=== PATIENT | female | born 2000 ===

== ENCOUNTER 2019-01-23 19:49 | Outpatient (CLI) | payer SELFPAY ==
[2019-01-23 20:18] LABS: APPEARANCE SL CLDY (CLEAR); COLOR DK YELLOW (YELLOW)
[2019-01-23 20:19] LABS: BILIRUBIN NEGATIVE (NEGATIVE); GLUCOSE NEGATIVE (NEGATIVE); KETONE NEGATIVE (NEGATIVE); NITRITE NEGATIVE (NEGATIVE); PROTEIN TRACE mg/dL (NEGATIVE); SPECIFIC GRAVITY 1.025 (1.005-1.020); UROBILINOGEN NORMAL (NORMAL)
[2019-01-23 20:22] LABS: BACTERIA MODERATE /hpf (NONE SEEN); RED CELLS - URINE 0-5 /hpf (0-5); SPERMATOZOA 0-5 /hpf (NONE SEEN)
== END 2019-01-23 20:55 | disposition home or self-care (01) ==
LOC: D.LDO 19:49
PROVIDERS: ATTEND Obstetrics & Gynecology
DX: O26.899 Other specified pregnancy related conditions, unspecified trimester (principal); Z3A.00 Weeks of gestation of pregnancy not specified

== ENCOUNTER → 2019-02-21 18:38 | Outpatient (CLI) | payer OTHER, MEDICAID ==
[2019-02-21 19:41] LABS: APPEARANCE CLEAR (CLEAR); BILIRUBIN NEGATIVE (NEGATIVE); COLOR YELLOW (YELLOW); GLUCOSE NEGATIVE (NEGATIVE); KETONE NEGATIVE (NEGATIVE); NITRITE NEGATIVE (NEGATIVE); PROTEIN NEGATIVE (NEGATIVE); UROBILINOGEN NORMAL (NORMAL)
[2019-02-21 19:43] LABS: EPITHELIAL CELLS 0-5 /hpf (0-5); RED CELLS - URINE 0-5 /hpf (0-5)
[2019-02-21 19:44] LABS: BACTERIA MODERATE /hpf (NONE SEEN)
== END | disposition home or self-care (01) ==
LOC: D.LDO 18:38
PROVIDERS: ATTEND Obstetrics & Gynecology
DX: O46.90 Antepartum hemorrhage, unspecified, unspecified trimester (principal)

== ENCOUNTER → 2019-03-07 11:57 | Outpatient (CLI) | payer OTHER, MEDICAID ==
[~2019-03-07 11:57] MED LIST: CYCLOBENZAPRINE10 MG PO; FERROUS SULFAT325 MG PO; HYDROCODON-ACE1 EA10 PO; IBUPROFEN600 MG PO; PRENAVITE1 TAB PO
[2019-03-11 05:46] VITALS: BMI 33.7
== END | disposition home or self-care (01) ==
LOC: D.LDO 11:57
PROVIDERS: ATTEND Obstetrics & Gynecology
DX: O48.0 Post-term pregnancy (principal); Z3A.40 40 weeks gestation of pregnancy

== ENCOUNTER 2019-03-10 20:06 | Inpatient (IN) | payer OTHER, MEDICAID ==
[~2019-03-10] VITALS: Ht 170.2 cm; Wt 97.5 kg
[2019-03-11] MEDS ORDERED: CYCLOBENZAPRINE10 MG PO (05:44)
[2019-03-11] MEDS ORDERED: FERROUS SULFAT325 MG PO (05:44)
[2019-03-11] MEDS ORDERED: PRENAVITE1 TAB PO (05:45)
[2019-03-11 05:46] VITALS: BP 120/73; Ht 170.2 cm; Wt 97.5 kg
[2019-03-11 06:38] LABS: HEMATOCRIT 28.5 % (36.0-48.0); HEMOGLOBIN 8.8 g/dL (12-16); MCHC 30.9 g/dL (31.0-37.0); MCV 77.7 fL (80.0-100.0); MEAN PLATELET VOLUME 9.9 fL (7.4-10.4); RBC 3.67 10x6/uL (4.00-5.40); RDW 15.5 % (11.5-14.5); WBC 10.1 10x3/uL (4.8-10.8)
[2019-03-12] VITALS (10 sets, daily range): BP systolic 90–139; BP diastolic 53–72
[2019-03-12 06:42] LABS: BASOPHILS 0.2 % (0-2); HEMATOCRIT 34.1 % (36.0-48.0); IMMATURE GRANULOCYTES 0.5 % (0-5); LYMPHOCYTES 17.9 % (15-50); MCH 24.7 pg (26.0-34.0); MCHC 31.7 g/dL (31.0-37.0); MEAN PLATELET VOLUME 9.7 fL (7.4-10.4); MONOCYTES 10.1 % (2-11); NEUTROPHILS 70.3 % (40-80); PLATELET COUNT 347 10x3/uL (130-400); RBC 4.37 10x6/uL (4.00-5.40); RDW 15.3 % (11.5-14.5)
[2019-03-12 06:44] LABS: HEMOGLOBIN 10.8 g/dL (12-16)
[2019-03-12 08:10] LABS: RAPID PLASMA REAGIN Non Reactive (Non Reactive)
--- NOTE | 2019-03-12 08:40 | NUR ---
BABY BOY BORN AT 0828
--- NOTE | 2019-03-12 09:29 | NUR ---
PT RECEIVED FROM RR, ALERT AND ORIENTED, CONVERSANT, VITAL SIGNS STABLE, RESP EVEN AND UNLABORED, HEART RRR, LUNGS CTAB, ABD SOFT MILDLY TENDER, DENIES C/O PAIN ON INQUIRY, FUNDUS FIRM AT U/2 AND MIDLINE, LOCHIA RUBRA LIGHT AMOUNT NO CLOTS, SCDS APPLIED TO B LE AND TO APPROPRIATELY FUNCTIONING PUMP. PULSE OX 100% ON RA. HOB ELEVATED 30 DEGREES, ICE PACK OVERLAY APPLIED OVER CDI ABD DRESSING, VEGA FREELY, NEGATIVE GAURAV'S SIGN B LE, PEDAL PULSES STRONG AND = B. CALL LIGHT PLACED WITHIN EASY REACH, PIV INFUSING PER IVAC PUMP OF NS WITH 20 UNITS PITOCIN ADDED AT 125ML/HR. ICE CHIPS PROVIDED UPON REQUEST OF PT, BED IN LOW POSITION, BED BRAKES LOCKED, SIDE RAILS UP X2, SIGNIFICANT OTHER TO ROOM. CONTINUE TO MONITOR PER POST-OP PROTOCOL.
--- NOTE | 2019-03-12 09:45 | NUR ---
VSS, RESP EVEN AND UNLABORED, CONVERSANT, DENIES NEEDS OR CONCERNS. WILL MONITOR.
--- NOTE | 2019-03-12 10:15 | NUR ---
FUNDUS FIRM AT U/2 AND MIDLINE, LOCHIA RUBRA SCANT TO LIGHT AMOUNT NO CLOTS, MILDLY AND APPROPRIATELY TENDER TO ABD. ASSISTED TO COMFORT, FAMILY AT BS, NO OTHER NEEDS VOICED, TOLERATING ICE CHIPS WITHOUT N/V. MOY TO GRAVITY DRAINAGE WITH 50 ML URINE NOTED IN TUBING AT THIS TIME. CONTINUE TO MONITOR.
--- NOTE | 2019-03-12 10:29 | NUR ---
PT C/O INCISIONAL PAIN THAT IS SHARP RATED 3/10 ON NUMERIC PAIN SCALE. SOA ENGINEER DILAUDID AND TORADOL SIVP GIVEN PER MD ORDERS AND VERIFIED PER Shiraz LIVINGSTON, RN WITH THIS RN. TO PT Shiraz MORENO, RN ASSISTING WITH TEACHING AT THIS TIME, FAMILY REMAINS TO ROOM, DISCUSSED USE OF SOA ENGINEER AND SOA ENGINEER BUTTON AND CALL LIGHT WITHIN EASY REACH OF PT. PT STATES UNDERSTANDING OF ALL INSTRUCTIONS GIVEN.
--- NOTE | 2019-03-12 11:30 | NUR ---
PT RESTING WITH EYES CLOSED ON ROUNDS, RESP EVEN AND UNLABORED, PERICARE PROVIDED WITH SMALL AMOUNT LOCHIA RUBRA NOTED, PERIPADS CHANGED, FUNDUS FIRM AT U/2 AND MIDLINE, USING FIXED INCOME PORTFOLIO MANAGER WITHOUT DIFFICULTY, DENIES C/O PAIN AT PRESENT. TOLERATING PO FLUIDS WITHOUT N/V. MOY TO GRAVITY DRAINAGE WITH CLEAR YELLOW URINE IN CHAMBER. CALL LIGHT IN EASY REACH, CONTINUE TO MONITOR.
--- NOTE | 2019-03-12 12:35 | NUR ---
ROUNDS COMPLETED, RESP EVEN AND UNLABORED, SITTING UPRIGHT IN BED WITH CLEAR LIQUID LUNCH TRAY ON BST. DENIES NEEDS OR CONCERNS, PULSE OX 100%, RESP EVEN AND UNLABORED, DENIES C/O PAIN AT PRESENT. CALL LIGHT AND CASH ACCOUNTANT BUTTON WITHIN EASY REACH OF PT, ENCOURAGED TO CALL THIS RN WITH ANY NEEDS, DESIRES, OR CONCERNS. STATES UNDERSTANDING. WILL MONITOR.
[2019-03-12 13:31] LABS: BASOPHILS 0.2 % (0-2); EOSINOPHILS 0.3 % (0-7); HEMATOCRIT 30.7 % (36.0-48.0); IMMATURE GRANULOCYTES 0.4 % (0-5); LYMPHOCYTES 9.3 % (15-50); MCH 25.3 pg (26.0-34.0); MCHC 32.6 g/dL (31.0-37.0); MCV 77.7 fL (80.0-100.0); MEAN PLATELET VOLUME 9.3 fL (7.4-10.4); MONOCYTES 7.3 % (2-11); NEUTROPHILS 82.5 % (40-80); PLATELET COUNT 291 10x3/uL (130-400); RBC 3.95 10x6/uL (4.00-5.40); RDW 15.1 % (11.5-14.5)
--- NOTE | 2019-03-12 13:35 | NUR ---
ROUNDS COMPLETED, INFANT IN ARMS, DENIES NEEDS OR CONCERNS, WILL MONITOR. NAD NOTED.
--- NOTE | 2019-03-12 14:25 | NUR ---
NURSERY STAFF TO ROOM TO ASSIST PT WITH , PT REMAINS CALM, RESP EVEN AND UNLABORED, NO C/O PAIN AT PRESENT, ENCOURAGED PT TO NOTIFY THIS RN WHEN COMPLETED FOR PERICARE AND POSITIONING CHANGE. STATES UNDERSTANDING, ENCOURAGED TCDB. WILL MONITOR. C/L AND PELT DROPPER BUTTON WITHIN EASY REACH OF PT.
--- NOTE | 2019-03-12 15:21 | NUR ---
ROUNDS COMPLETED, PT RESTING WITH NAD, EYES CLOSED, PERICARE PROVIDED, INFANT IN ARMS. WILL MONITOR.
--- NOTE | 2019-03-12 16:03 | NUR ---
REQUESTED ICE WATER. FRESH WATER GIVEN. INSTRUCTED ON USE OF INCENTIVE SPIROMETER. USED X 3 WITH WEAK COUGH. ENCOURAGED TO USE IP 10 X/HR AND INSTRUCTED ON SPLINTING ABDOMEN. TOLERATED WELL. SITTING UP IN BED, TV ON FOB IN ROOM, IN CRIB. GOLD LEAF LABORER CONTROLLER AND CALL LIGHT IN REACH. AT APPROX 30% CLEAR LIQUID DIET FOR LUNCH. SIDERAILS UP X 2. TO CALL IF ANYTHING IS NEEDED.
--- NOTE | 2019-03-12 17:30 | NUR ---
ROUNDS COMPLETED, PT SITTING UPRIGHT IN BED, TOLERATING PO FLUIDS/DINNER TRAY. NAD NOTED. CONTINUE TO MONITOR.
--- NOTE | 2019-03-12 18:05 | NUR ---
ROUNDS COMPLETED FOLLOWING ADMINISTRATION OF NS WITH 20 UNITS PITOCIN ADDED HUNG AND INFUSING AT 125ML/HR TO PIV SITE, L WRIST SITE BENIGN TO INSPECTION. RESP EVEN UNLABORED, MOY CATHETER DRAINAGE BAG EMPTIED, INTAKE AND OUTPUT ENTERED INTO [email or web address], PERICARE COMPLETED, FUNDUS FIRM AT U/2 AND MIDLINE, LOCHIA RUBRA SMALL AMOUNT NO CLOTS, VEGA FREELY, PEDAL PULSES STRONG/=/2+ B. REPOSITIONED PT TO COMFORT, ICE PACK OVERLAY REFRESHED AND TO MATERNAL ABD, CUP OF ICE WATER REFRESHED, TO PT TIFFANIE, Shiraz LIVINGSTON, RN TO ROOM TO ASSIST WITH , NO OTHER NEEDS VOICED AT THIS TIME, CALL LIGHT AND MANAGER SYSTEM BUTTON WITHIN EASY REACH. CONTINUE TO MONITOR.
--- NOTE | 2019-03-12 19:23 | NUR ---
PT LAYING ON LEFT SIDE RESTING WITH EYES CLOSED. RESP REGULAR AND UNLABORED, NO S/S OF DISTRESS NOTED. SNORING AUBILE. FOB AT BEDSIDE WITH IN HIS ARMS, DENIES NEEDS. WILL CONTINUE TO MONITOR. BED IN LOW POSITION WITH UPPER SIDE RAILS RAISED X2. CALL LIGHT, PHONE, AND CORPORATE CLAIMS EXAMINER BUTTON WITHIN REACH. SCD'S ON BLE. WILL CONTINUE TO MONITOR.
--- NOTE | 2019-03-12 20:15 | NUR ---
SHIFT ASSESSMENT COMPLETED PER FLOWSHEET. VSS. FUNDUS FIRM MIDLINE AND U2 WITH SMALL AMT RUBRA LOCHIA TO PERIPADS, NO CLOTS NOTED. 100 MLS CLEAR LIGHT YELLOW URINE IN MOY AND EMPTIED. PAIN 2/10, ABD SORENESS, REPORTS THAT MANAGER PRINTING IS CONTROLLING PAIN WELL. SCD'S TO BLE. 1+ BLE EDEMA NOTED. BOWEL SOUNDS PRESENT AND ACTIVE X4 QUADRANTS. PT REPORTS THAT SHE IS NOT PASSING FLATUS BUT IS BELCHING FREQUENTLY. ABD GRAVID IN APPEARENCE BUT NONDISTENDED. DRSG TO LOWER TRANSVERSE ABD INCISION CLEAN DRY, AND INTACT WITH NO DRAINAGE NOTED. REPOSITIONED INDEPENDENTLY TO BACK AND UP IN BED TO BF . INCENTIVE SPIROMETER, COUGH, AND DEEP BREATHING DONE WITH GOOD EFFORT. ICE PACK PLACED TO ABD. DENIES ADDITIONAL NEEDS. BED IN LOW POSITION WITH UPPER SIDE RAILS RAISED X2. CALL LIGHT, PHONE, AND MANAGER PRINTING BUTTON WITHIN REACH. FOB AT BEDSIDE, SUPPORTIVE AND ATTENTIVE TO PT AND INFANT NEEDS. INFANT PLACED IN PT ARMS BY FOB. DENIES NEED FOR ASSISTANCE WITH BF AT THIS TIME, STATES THAT SHE WILL CALL IF ASSISTANCE IS NEEDED.
--- NOTE | 2019-03-12 21:30 | NUR ---
CONVERSING WITH FOB. REPORTS THAT PAIN REMAINS 2/10, ABD SORENESS AND "A LITTLE CRAMPING LIKE PERIOD CRAMPS." TORADOL OFFERED, PT DENIES NEED FOR ADDITIONAL INTERVENTION. STATES THAT SHE WILL ASK FOR IT IF NEEDED. ICE WATER, JELLO, AND BEEF BROTH PROVIDED PER PT REQUEST. SCD'S REMAIN ON BLE. COUGH, DEEP BREATHING AND INCENTIVE SPIROMETER DONE WITH ENCOURAGMENT, GOOD EFFORT NOTED. FOB REMAINS AT BEDSIDE BONDING WITH INFANT, SUPPORTIVE AND ATTENTIVE TO PT AND NEEDS. BED IN LOW POSITION WITH UPPER SIDE RAILS RAISED X2. CALL LIGHT AND PHONE WITHIN REACH. WILL CONTINUE TO MONITOR.
--- NOTE | 2019-03-12 22:31 | NUR ---
LAYING ON LEFT SIDE WITH HOB AT 30 DEGREES. RESP REGULAR AND UNLABORED, NO S/S OF DISTRESS NOTED. SNORING AUBILE OCCASIONAL. FOB RESTING ON COUCH AT BEDSIDE. IN NBN AT THIS TIME. BED IN LOW POSITION WITH UPPER SIDE RAILS RAISED X2. CALL LIGHT, ACCOUNT ADJUSTER BUTTON, AND PHONE WITHIN REACH. WILL CONTINUE TO MONITOR AND ASSIST PRN.
[2019-03-13 00:10] VITALS: BP 130/67
--- NOTE | 2019-03-13 00:10 | NUR ---
VSS. FUNDUS REMAINS FIRM MIDLINE AND U2 WITH SMALL AMT RUBRA LOCHIA, NO CLOTS NOTED. C/O ABD CRAMPING AND SORENESS, 3/10, TORADOL GIVEN PER ORDER AND PT REQUEST. 500 MLS CLEAR LIGHT YELLOW URINE EMPTIED FROM MOY. PERICARE DONE, TOWELS, CHUX, AND PERIPAD CHANGED. INCENTIVE SPIROMETER, COUGH, AND DEEP BREATHING DONE PER PT WITH GOOD EFFORT. ICE PACK PLACED PER PT REQUEST. DRSG TO LOWER TRANSVERSE ABD INCISION REMAINS CLEAN, DRY AND INTACT WITH NO DRAINAGE NOTED. SCD'S ON BLE. BED IN LOW POSITION WITH UPPER SIDE RAILS RAISED X2. CALL LIGHT, BANK ACCOUNTANT BUTTON, AND PHONE WITHIN REACH. WILL CONTINUE TO MONITOR.
--- NOTE | 2019-03-13 00:45 | NUR ---
BF INFANT AT THIS TIME. PAIN REASSESSMENT COMPLETED 07/29, DENIES NEED FOR ADDITIONAL INTERVENTION. FOB AT BEDSIDE, SUPPORTIVE AND ATTENTIVE TO PT AND INFANT NEEDS. DENIES NEEDS. BED IN LOW POSITION WITH UPPER SIDE RAILS RAISED X2. CALL LIGHT, CATHETER BUILDER BUTTON, AND PHONE WITHIN REACH. WILL CONTINUE TO MONITOR.
--- NOTE | 2019-03-13 02:00 | NUR ---
NEW BAG NS WITH 20 UNITS PIT HUNG TO CONTINUE TO INFUSE AT 125 MLS/HR PER ORDER. PT HAD REPOSITIONED SELF TO LEFT SIDE. DENIES PAIN. REPORTS THAT SHE PASSED FLATUS WHEN REPOSITIONING SELF AND HAD JUST DONE COUGHING DEEP BREATHING AND INCENTIVE SPIROMETER PRIOR TO REPOSITIONING SELF. DENIES NEEDS AT THIS TIME. FOB RESTING ON COUCH AT BEDSIDE. BED IN LOW POSITION WITH UPPER SIDE RAILS RAISED X2. CALL LIGHT, ANTHROPOMETRIST BUTTON, AND PHONE WITHIN REACH. SCD'S ON BLE.
--- NOTE | 2019-03-13 03:47 | NUR ---
HYDROMORPHONE ROAD MIXER OPERATOR CHANGED D/T PUMP BEEPING NEAR END. PAIN 1/10, ABD CRAMPING AND SORENESS. DENIES NEED FOR ADDITIONAL INTERVENTION. BF AT THIS TIME. DENIES NEEDS. INSTRUCTED TO CALL RN WHEN BF COMPLETED FOR V/S CHECK AND PERICARE, VERBALIZES UNDERSTANDING. SMALL AMT RUBRA LOCHIA NOTED TO PERIPADS AT THIS TIME. FOB AT BEDSIDE, SUPPORTIVE AND ATTENTIVE TO PT AND INFANT NEEDS. BED IN LOW POSITION WITH UPPER SIDE RAILS RAISED X2. CALL LIGHT AND PHONE WITHIN REACH. WILL CONTINUE TO MONITOR. SCD'S ON BLE, ROAD MIXER OPERATOR BUTTON WITHIN REACH.
[2019-03-13 04:32] VITALS: BP 126/63
--- NOTE | 2019-03-13 04:32 | NUR ---
CALLS VIA CALL LIGHT, REPORTS THAT SHE COMPLETED BF. VSS. FUNDUS FIRM, MIDLINE AND U2 WITH SMALL RUBRA LOCHIA, NO CLOTS NOTED. PT MOVING AND REPOSITIONING SELF INDEPENDENTLY IN BED. RATES PAIN 1/10 WITH MOVEMENT AND ABD CRAMPING. 700 MLS CLEAR LIGHT YELLOW URINE EMPTIED FROM MOY. PERICARE DONE, TOWELS, CHUX, AND PERIPAD CHANGED. NEW ICE PACK PROVIDED. DRSG TO LOWER TRANSVERSE ABD INCISION REMAINS CLEAN DRY AND INTACT WITH NO DRAINAGE NOTED. SCD'S REMAIN ON BLE. APPLE JUICE PROVIDED. FLATUS PASSED WHILE RN AT BEDSIDE. COUGH, DEEP BREATHING DONE WITHOUT ENCOURAGEMENT WITH GOOD EFFORT. INCENTIVE SPIROMETER USED WITHOUT ENCOURAGEMENT WITH GOOD EFFORT. FOB BONDING WITH . ORAL CARE DONE BY PT. DENIES ADDITIONAL NEEDS. BED IN LOW POSITION WITH UPPER SIDE RAILS RAISED X2. CALL LIGHT AND PHONE WITHIN REACH. WILL CONTINUE TO MONITOR AND ASSIST PRN. CIPHER EXPERT BUTTON WITHIN REACH.
--- NOTE | 2019-03-13 06:06 | NUR ---
LAB COMPLETING A.M DRAW. C/O ABD CRAMPING AND SORENESS 07/29, TORADOL GIVEN PER ORDER AND PT REQUEST. 275 MLS CLEAR LIGHT YELLOW URINE EMPTIED FROM MOY. I&O DONE. DRSG TO LOWER TRANSVERSE ABD REMAINS CLEAN, DRY, AND INTACT WITH NO DRAINAGE. PT REPORTS THAT SHE HAS ALREADY USED INCENTIVE SPIROMETER AND PERFORMED COUGHING AND DEEP BREATHING. PREPARING TO BF , DENIES NEEDS. BED IN LOW POSITION WITH UPPER SIDE RAILS RAISED X2. CALL LIGHT AND PHONE WITHIN REACH. DIRECTOR EPIDEMIOLOGY BUTTON WITHIN REACH. FOB AT BEDSIDE, SUPPORTIVE AND ATTENTIVE TO PT AND NEEDS.
[2019-03-13 06:35] LABS: BASOPHILS 0.3 % (0-2); EOSINOPHILS 0.8 % (0-7); HEMATOCRIT 27.7 % (36.0-48.0); HEMOGLOBIN 8.8 g/dL (12-16); IMMATURE GRANULOCYTES 0.4 % (0-5); MCH 24.5 pg (26.0-34.0); MCHC 31.8 g/dL (31.0-37.0); MCV 77.2 fL (80.0-100.0); MEAN PLATELET VOLUME 9.7 fL (7.4-10.4); MONOCYTES 8.5 % (2-11); PLATELET COUNT 251 10x3/uL (130-400); RBC 3.59 10x6/uL (4.00-5.40); RDW 15.7 % (11.5-14.5); WBC 11.6 10x3/uL (4.8-10.8)
--- NOTE | 2019-03-13 07:29 | NUR ---
ASSUMED CARE OF THIS PATIENT. CURRENTLY SLEEPING, FOB IN ROOM. WILL DC IV, MOY ETC WHEN AWAKE AND COMPLETE SHIFT ASSESSMENT AT THAT TIME. SIDE RAILS UPX 2, CALL LIGHT IN REACH.
[2019-03-13 07:44] VITALS: BP 124/59
--- NOTE | 2019-03-13 07:44 | NUR ---
AWAKE, ATE 50% OF BREAKFAST. SHIFT ASSESSMENT COMPLETED. IV FLUIDS AND TRACK MANAGER DC'D, MOY DC'D. DISCUSSED PAIN MANAGEMENT WITH PO MEDICATIONS, CURRENT PAIN 2/10 INCISIONAL ACHING. DISCUSSED PLAN OF CARE TO INCLUDING VOIDING, AMBULATION, SHOWER, DRESSING REMOVAL. DESIRES TO TRY TO GO BACK TO SLEEP FOR NOW. INFANT IN NURSERY, FOB IN ROOM, SIDERAILS UP X 2, CALL LIGHT IN REACH. TO CALL IF STARTING TO FEEL INCREASED IN PAIN LEVEL SO PO MEDS CAN BE STARTED. VERBALIZED UNDERSTANDING. INCENTIVE SPIROMETER USED X 3. A+, RUBELLA IMMUNE, GBS NEG, NON-SMOKER.
--- NOTE | 2019-03-13 09:20 | NUR ---
SLEEPING ON RIGHT SIDE. RESPIRATIONS EVEN. FOB SLEEPING ON COUCH. INFANT REMAINS IN NURSERY.
--- NOTE | 2019-03-13 10:05 | NUR ---
PT CALLS ON LIGHT. THIS NURSE TO ROOM. PT STATES HAS TO USE BATHROOM. PT OOB AND AMB TO BR. VOIDS 950 ML OF CLEAR, YELLOW URINE. PERICARE DONE PER PT. PANTIES AND PAD ON. PT AMBULATES BACK TO BED. C/O MILD DIZZINESS WALKING BACK TO BED. SCDS ON BLE. PUMP ON. PT JESUS ACTIVITY WELL. STATES FEELS BETTER AFTER LYING DOWN. SR UP X 2. CALL LIGHT IN REACH.
--- NOTE | 2019-03-13 10:39 | NUR ---
SITTING UP IN BED TALKING TO FOB. INFANT IN CRIB. DENIES PAIN 0/10 INSTRUCTED TO CALL IF ANYTHING IS NEEDED FOR PAIN. WILL AMBULATE AND SHOWER AFTER LUNCH UNLESS DESIRE TO DO BEFORE THEN. VOIDED EARLIER WITHOUT DIFFICULTY. SIDE RAILS UP X 2, CALL LIGHT IN REACH.
--- NOTE | 2019-03-13 11:45 | NUR ---
UP TO BATHROOM TO VOID. TOLERATED WELL. NO C/O DIZZINESS. VOIDED 800 ML CLEAR YELLOW URINE. FREDDY CARE PER SELF. LOCHIA RUBRA SMALL. RETURNED TO BED. SCD'S REPLACED PER PT REQUEST. OFFERED PAIN MEDICATION. DENIES NEEDING AT THIS TIME. 08/29 INCISIONAL BURNING. WAITING ON LUNCH TRAY. FOB AND INFANT IN ROOM. CALL LIGHT IN REACH. SIDE RAILS UP X 2, BED IN LOW POSITION.
--- NOTE | 2019-03-13 12:00 | NUR ---
AMBULATED AROUND L&D X 1. TOLERATED WELL. RETURNED TO BED. SCD'S IN PLACE. VS OBTAINED. TO PRESENT REQUESTS. TO CALL IF ANYTHING IS NEEDED. WAITING ON LUNCH.
[2019-03-13 12:01] VITALS: BP 127/70
--- NOTE | 2019-03-13 13:03 | NUR ---
WASTED 28 ML DILAUDID FROM PT BURRER HAND. OBSERVED BY RICHARD GAUTAM RN.
--- NOTE | 2019-03-13 13:15 | NUR ---
FINISHED LUNCH. REQUESTED PAIN MEDICATION FOR 4/10 INCISIONAL BURNING. NORCO 10 MG GIVEN PO FOR RELIEF AFTER DISCUSSING OPTIONS. INSTRUCTED MED MAY CAUSE DIZZINESS AND TO NOT GET OOB WITHOUT ASSISTANCE. VERBALIZED UNDERSTANDING. PLANS TO TAKE A NAP. WILL SHOWER THIS AFTERNOON. SIDE RAILS UP X 2, CALL LIGHT IN REACH FOB AND INFANT REMAIN IN ROOM.
--- NOTE | 2019-03-13 13:28 | NUR ---
SITTING UP IN BED TALKING TO VISITOR. SAYS SHE DOESN'T FEEL ANY PAIN AT THIS TIME. 010. IN ROOM, CALL LIGHT IN REACH. TO CALL IF ANYTHNG IS NEEDED. SALINE LOCK WAS REMOVED FROM R WRIST EARLIER WITH TIP INTACT. WILL KEEP LEFT SALINE LOCK UNTIL TOMORROW.
--- NOTE | 2019-03-13 15:14 | NUR ---
SITTING UP IN BED HOLDING . DENIES FEELING ANY PAIN 0/10. WILL LET RN KNOW WHEN SHE IS READY TO SHOWER. SIDE RAILS UP X 2, CALL LIGHT IN REACH. USING INCENTIVE SPIROMETER. FOB IN ROOM.
--- NOTE | 2019-03-13 16:20 | NUR ---
SITTING UP IN BED TALKING TO VISITORS. PLANS SHOWER WHEN VISITORS LEAVE. FOB AND INFANT IN ROOM. FRESH WATER GIVEN. HOLDING IN ARMS. DENIES NEEDING ANYTHING AT THIS TIME.
--- NOTE | 2019-03-13 17:18 | NUR ---
COMPLETE LINEN CHANGE DONE. RETURNED TO BED AFTER FINISHING HER SHOWER. SITTING ON EDGE OF BED EATING DINNER AND TALKING TO VISITORS. DENIES NEEDING ANYTHING AT THIS TIME. WAS INSTRUCTED ON USE OF HEBICLENSE AND CARE OF INCISION PRIOR TO TAKING SHOWER. INCISION CLEAN AND DRY WITH JOSE INTACT. DR HOUSE REMOVED DRESSING EARLIER IN THE DAY. SIDE RAILS UP X 2, CALL LIGHT IN REACH.
[2019-03-13 18:29] VITALS: BP 121/72
--- NOTE | 2019-03-13 18:35 | NUR ---
SITTING UP IN BED WATCHING TV. FOB IN ROOM, INFANT IN ARMS. DENIES PAIN 0/10. U/3 FIRM MIDLINE. UP AD MARU TO BATHROOM. ENCOURAGED TO GET OOB AND AMBULATE THIS EVENING. FREDDY-PAD PLACED OVER INCISION AND INSTRUCTED TO CHANGE FREQUENTLY. VERBALIZED UNDERSTANDING. DENIES PAIN AT THIS TIME 0/10. NO REQUESTS. SCD'S OFF CURRENTLY SINCE UP AD MARU. SIDE RAILS UP X2, CALL LIGHT IN REACH.
--- NOTE | 2019-03-13 18:53 | NUR ---
AMBULATING IN NUNES WITH FOB AND IN CRIB. TOLERATING WELL. REPORT GIVEN TO PM SHIFT.
[2019-03-13 19:15] VITALS: BP 120/71
--- NOTE | 2019-03-13 19:15 | NUR ---
ASSESSMENT PER FLOW SHEET, VS OBTAINED, SALINE LOCK IN LEFT WRIST INTACT WITH NO REDNESS OR EDEMA, FF, ML, U/2, PT REPORTS SCANT BLEEDING WITH NO CLOTS, BIKINI INC WITH JOSE CDI WITH NO DRAINAGE NOTED, PT INST ON INCISIONAL CARE, PT VERBALIZES UNDERSTANDING, PT REPORTS FLATUS, NO BM AND VOIDING WITH NO DIFFICULTY, PT INST ON AND REPORTS USING I.S. INST, PT DENIES NEEDS OR PAIN AT THIS TIME, FOB HOLDING
--- NOTE | 2019-03-13 20:37 | NUR ---
PT HOLDING INFANT, REPORTS INC PAIN, ADM NORCO PER MD ORDERS, SEE EMAR, FRESH H20 SERVED, SMALL SPLINT PILLOW PROVIDED, PT DENIES FURTHER NEEDS, FOB AT BEDSIDE
--- NOTE | 2019-03-13 21:35 | NUR ---
PT WATCHING TV, INFANT BACK IN NSY, PT DENIES NEEDS OR PAIN AT THIS TIME, FOB BRINGS PT COLA
--- NOTE | 2019-03-13 22:21 | NUR ---
PT RESTING WITH EYES CLOSED, RESP QUIET, NO DISTRESS NOTED, LEFT UNDISTURBED AT THIS TIME, BED IN LOW POSITION, SIDE RAILS X 2, CALL LIGHT IN REACH, FOB ASLEEP AT BEDSIDE
[2019-03-14 00:36] VITALS: BP 100/54
--- NOTE | 2019-03-14 00:36 | NUR ---
PT AROUSES TO OPENING OF DOOR, REPORTS THAT SHE JUST GOT BACK TO BED AFTER VOIDING, REPORTS NO DIFFICULTY WITH VOIDING, VS OBTAINED, FLUSHED SALINE LOCK WITH NO DIFFICULTY, PT DENIES NEEDS OR PAIN AT THIS TIME, FOB ASLEEP ON COUCH
--- NOTE | 2019-03-14 02:23 | NUR ---
PT AROUSES TO OPENING OF DOOR, DENIES NEEDS OR PAIN AT THIS TIME, FOB AT BEDSIDE
--- NOTE | 2019-03-14 04:23 | NUR ---
PT RESTING WITH EYES CLOSED, RESP QUIET, NO DISTRESS NOTED, LEFT UNDISTURBED AT THIS TIME, FOB ASLEEP ON COUCH
--- NOTE | 2019-03-14 05:27 | NUR ---
PT RESTING WITH EYES CLOSED, RESP QUIET, NO DISTRESS NOTED, LEFT UNDISTURBED AT THIS TIME, FOB ASLEEP ON COUCH
--- NOTE | 2019-03-14 06:45 | NUR ---
PT AMB IN NUNES, GAIT STEADY, FOB PUSHING INFANT IN OPEN CRIB CART, PT AMB AROUND UNIT AND THEN BACK TO ROOM, DENIES NEEDS OR PAIN AT THIS TIME
--- NOTE | 2019-03-14 08:45 | NUR ---
AM ASSESSMENT COMPLETED AND CHARTED PER FLOWSHEET. PT RATES PAIN AT 5/10 AND REQUEST PAIN MED. FUNDUS FIRM AT U/U WITH SCANT BLEEDING NOTED TO FREDDY PAD, BIKINI INCISION CLEAN AND DRY WITH JOSE IN PLACE. SALINE LOCK REMOVED FROM LEFT WRIST, IV CATH NOTED TO BE INTACT. INFANT IN CRIB AT BEDSIDE WITH SIG OTHER ALSO PERSENT. SIDE RAILS UP X 2 WITH PHONE AND CALL LIGHT IN REACH.
--- NOTE | 2019-03-14 09:30 | NUR ---
Pain reassessment, pt rates at 2/10 at this time. denies needs for nurse.
--- NOTE | 2019-03-14 10:40 | NUR ---
denies needs at this time. in carrier at bedside. side rails up x 2 with call light in reach.
[2019-03-14] MEDS ORDERED: HYDROCODON-ACE1 EA10 PO (12:08)
[2019-03-14] MEDS ORDERED: IBUPROFEN600 MG PO (12:09)
--- NOTE | 2019-03-14 12:45 | NUR ---
Verbal and written discharge instructions gone over with written scripts provided for Bandy 10/325mg and Motrin 600mg pt states her understanding of all info given and denies any questions. Pt will call she is dressed and ready to be taken out to car.
--- NOTE | 2019-03-14 13:00 | NUR ---
Pt calls out that she is ready to go, secured in carrier. Taken out to car by wheelchair home with family by private car.
--- NOTE | 2019-03-22 10:58 | OP ---
PATIENT NAME: TAMAR EDMONDS MEDICAL RECORD: [id number] :99 LOCATION:[id number] ADMISSION DATE:03/11/19 SURGEON: MO SERRANO MD DATE OF OPERATION: 03/11/2019 PREOPERATIVE DIAGNOSES: 1. Term intrauterine at 40 weeks. 2. Failed induction of labor. POSTOPERATIVE DIAGNOSES: 1. Term intrauterine at 40 weeks. 2. Failed induction of labor. PROCEDURE: Primary low transverse section. SURGEON: Mo Serrano MD ANESTHESIA: Regional via epidural. INTRAVENOUS FLUIDS: Per anesthesia record. ESTIMATED BLOOD LOSS: 1000 cc. FINDINGS: 1. Viable , Apgars 9 at 1 and 9 at 5. 2. Placenta delivered manually intact, 3-vessel cord noted. 3. Normal adnexa bilaterally. SPECIMENS: Placenta and cord for gases. ESTIMATED BLOOD LOSS: 1000 cc. COMPLICATIONS: None apparent. DESCRIPTION OF PROCEDURE: The patient taken to the operating room where regional anesthesia was achieved without difficulty. The patient then prepped and draped in normal sterile fashion in the dorsal supine position. SCDs were on and functioning normally and Asher catheter had been placed and was draining freely. A Pfannenstiel skin incision was made, extended downward to the underlying subcutaneous fat to the level of the fascia. The fascia then excised in the midline using the scalpel and extended bilaterally using the Mittal scissors. Superior and inferior aspects of the fascial incision were grasped with Shasha clamps, tented upward, and sharply dissected from the underlying rectus muscle using the Mittal scissors and Bovie cautery. The rectus muscles were then bluntly in the midline and the peritoneum entered sharply at the superior aspect of the incision using the Metzenbaum scissors. Peritoneal incision extended bilaterally using the Metzenbaum scissors. A bladder blade was placed into the pelvis. A bladder flap was created by excising the anterior leaf of the broad ligament across the lower uterine segment using the Metzenbaum scissors. This was further developed digitally. The bladder blade was replaced over the bladder flap. A low transverse incision was made and extended superiorly and inferiorly using the Pelosi method. The vertex delivered atraumatically followed by the body. Baby was bulb suctioned upon delivery. The cord was clamped times 2, cut, and the infant was handed to awaiting nursery team. Cord was obtained for gases and the placenta was removed manually and OPERATIVE REPORT [id number] TAMAR EDMONDS intact. A 3-vessel cord was noted. Uterus was exteriorized, cleared of all clots and debris and vigorously massaged until good uterine tone was noted. Uterine incision was repaired with 0 Vicryl in a running locked fashion times 2 with good hemostasis noted. Posterior cul-de-sac was then thoroughly irrigated and uterus was replaced into the pelvis. Anterior cul-de-sac was then thoroughly irrigated. Good hemostasis was again noted. Counts were correct times 2 for needles, sponges, and instruments. The fascia was repaired with 0 loop PDS times 1 and the skin repaired with divya. The patient tolerated the procedure well, transferred to postanesthesia recovery stable without incident. TRANSINT:[id number] Voice Confirmation ID: [id number] DOCUMENT ID: [id number] MO SERRANO MD at 1058 CC: [id number] DICTATION DATE: 03/18/19 155 WET ROOM WORKER: 03/18/[id number] DIS IN 03/14/19 [facility] [address] [place] [address]
== END 2019-03-14 13:00 | disposition home or self-care (01) | DRG 788 ==
LOC: D.LD 03-11 05:00
PROVIDERS: ADMIT Obstetrics & Gynecology; ATTEND Obstetrics & Gynecology
PROC: 3E033VJ Introduction of Other Hormone into Peripheral Vein, Percutaneous Approach (ICD-10-PCS; 2019-03-11)
PROC: 10D00Z1 Extraction of Products of Conception, Low, Open Approach (ICD-10-PCS; principal; 2019-03-12 07:39)
DX: O99.02 Anemia complicating childbirth (principal); D64.9 Anemia, unspecified; Z3A.40 40 weeks gestation of pregnancy; Z37.0 Single live birth; O61.0 Failed medical induction of labor; Z87.891 Personal history of nicotine dependence